=== PATIENT | female | born 1975 | race Caucasian/White ===

== ENCOUNTER 2022-05-09 08:25 | Day surgery (SDC) | payer BC ==
[2022-05-08 15:52] VITALS: BMI 24.9
[2022-05-09] MEDS ORDERED: DEXTROSE 50%-WATER 25 GM/50 ML DISP.SYRIN ONE ×3 (08:58→10:09)
[2022-05-09] MEDS ORDERED: DEXTROSE 50%-WATER 25 GM/50 ML DISP.SYRIN IVPUSH ONE ×3 (09:00→09:40)
[2022-05-09 09:08] VITALS: BP 123/63; PULSE 96; RESP 18; TEMP 98.1
[2022-05-09 10:52] LABS: ALBUMIN 3.8 g/dl (3.4-5.0); BILIRUBIN,TOTAL 0.9 mg/dl (0.2-1); CALCIUM 9.6 mg/dl (8.5-10); CREATININE 0.9 mg/dl (0.55-1.3); MAGNESIUM 1.7 mg/dL (1.8-2.4); TOT PROT 6.9 g/dl (6.4-8.2)
== END 2022-05-09 10:00 | disposition short-term general hospital (02) ==
LOC: FASU-ENDO 08:25
PROVIDERS: ATTEND Internal Medicine Gastroenterology
PROC: 0DJD8ZZ Inspection of Lower Intestinal Tract, Via Natural or Artificial Opening Endoscopic (ICD-10-PCS; principal; 2022-05-09)
DX: Z53.09 Procedure and treatment not carried out because of other contraindication (principal); Z12.11 Encounter for screening for malignant neoplasm of colon
CPT/HCPCS: 36415; 80053; 81025; 82947; 82962; 83735; 84100

== ENCOUNTER 2022-05-09 09:52 | Emergency (ER) | payer BC ==
[2022-05-09] MEDS ORDERED: ACETAMINOPHEN 1000 MG/100 ML BAG IVPB ONE (10:02)
[2022-05-09] MEDS ORDERED: SODIUM CHLORIDE 0.9% 500 ML INFUS.BAG IV ONE (10:02)
[2022-05-09 10:15] VITALS: BMI 24.8
[2022-05-09] MEDS ORDERED: ACETAMINOPHEN INJECTION 100 ML IVPB ONE (10:29)
[2022-05-09 10:45] LABS: HEMATOCRIT 37.5 % (32.4-45.2); HEMOGLOBIN 12.1 G/dL (10.7-15.3); MCHC 32.3 g/dl (32.0-36.0); MEAN CELL VOLUME 74.3 fl (80-96); MEAN PLT VOLUME 8.5 fl (7.5-11.1); PLATELET COUNT 219.4 10^3/uL (134-434); RBC 5.05 10^6/uL (3.60-5.2); RDW 21.8 % (11.6-15.6); WHITE BLOOD COUNT 8.5 10^3/uL (4.0-10.8)
[2022-05-09 11:03] LABS: PLATELET ESTIMATE ADEQUATE
[2022-05-09] MEDS ORDERED: MAGNESIUM SULF 50% (8.12 MEQ/2 ML-1 GM VIAL) IVPB ONE (11:09)
[2022-05-09] MEDS ORDERED: MAGNESIUM 1GM/D5W - 1 GM/100 ML IVPB IVPB ONE (11:15)
[2022-05-09 12:06] VITALS: BP 97/58; PULSE 104; RESP 16; TEMP 98.9
== END 2022-05-09 12:14 | disposition home or self-care (01) ==
LOC: FER 09:52
PROC: 3E033GC Introduction of Other Therapeutic Substance into Peripheral Vein, Percutaneous Approach (ICD-10-PCS; principal; 2022-05-09)
DX: U07.1 COVID-19 (principal); E11.649 Type 2 diabetes mellitus with hypoglycemia without coma; E83.42 Hypomagnesemia
CPT/HCPCS: 0241U-QW; 36415; 82962; 85027; 99284-25

== ENCOUNTER 2022-05-10 11:33 | Emergency (ER) | payer BC, OTHER ==
[2022-05-10 11:42] VITALS: TEMP 98.5; BMI 24.9
[2022-05-10] MEDS ORDERED: BEBTELOVIMAB (EUA) 175 MG/2 ML VIAL IVPUSH ONE (12:37)
[2022-05-10 15:14] VITALS: BP 102/66; PULSE 86; RESP 18
== END 2022-05-10 15:50 | disposition home or self-care (01) ==
LOC: JCOVINFU 11:33
DX: U07.1 COVID-19 (principal)
CPT/HCPCS: 99284-25; M0222; Q0222

== ENCOUNTER 2022-06-28 10:49 | Observation (INO) | payer BC ==
[2022-06-28 11:02] VITALS: BP 100/69; PULSE 68; RESP 17; TEMP 97.1; BMI 24.5
[2022-06-28 12:18] LABS: CHLORIDE 102 mmol/L (98-107); SODIUM 135 mmol/L (136-145)
[2022-06-28 12:20] LABS: BASO % 0.4 % (0-2.0); CALCIUM 8.9 mg/dL (8.5-10.1); EOS % 2.3 % (0-4.5); HEMATOCRIT 39.3 % (32.4-45.2); HEMOGLOBIN 12.2 GM/dL (10.7-15.3); LYMPH % 14.2 % (8-40); MCH 23.5 pg (25.7-33.7); MEAN CELL VOLUME 75.6 fl (80-96); MEAN PLT VOLUME 8.9 fl (7.5-11.1); NEUT % 74.1 % (42.8-82.8); PLATELET COUNT 282 10^3/uL (134-434); RDW 18.7 % (11.6-15.6); WHITE BLOOD COUNT 5.5 K/mm3 (4.0-10.0)
[2022-06-28 12:20] LABS: EPI CELLS 10 /uL (0-25.1); HYALINE CASTS 0 /uL (0-3.1); URINE APPEARANCE CLEAR; URINE BACTERIA 153 /uL (0-1359); URINE BILIRUBIN NEGATIVE (NEGATIVE); URINE COLOR YELLOW; URINE GLUCOSE (UA) TRACE (NEGATIVE); URINE KETONE NEGATIVE (NEGATIVE); URINE LEUK ESTERASE TRACE (NEGATIVE); URINE NITRITE NEGATIVE (NEGATIVE); URINE PROTEIN NEGATIVE (NEGATIVE); URINE RBC 82 /uL (0-23.9); URINE UROBILINOGEN 0.2 mg/dL (0.2-1.0); URINE WBC 22 /uL (0-25.8)
[2022-06-28 12:21] LABS: ALBUMIN 3.5 g/dl (3.4-5.0); CO2 32 mmol/L (21-32); GLUCOSE,RANDOM 94 mg/dL (74-106); MAGNESIUM 2.4 mg/dL (1.8-2.4)
[2022-06-28 12:24] LABS: PHOSPHOROUS 6.1 mg/dL (2.5-4.9); SGOT/AST 121 U/L (15-37)
[2022-06-28 12:25] LABS: BILIRUBIN,TOTAL 0.3 mg/dL (0.2-1); TOT PROT 7.9 g/dl (6.4-8.2)
[2022-06-28 12:28] LABS: ALK PHOS 77 U/L (45-117); ANION GAP 1 MMOL/L (8-16); SGPT/ALT 37 U/L (13-61)
[2022-06-28] MEDS ORDERED: DEXTROSE 50%-WATER 25 GM/50 ML DISP.SYRIN ONE (14:59)
[2022-06-28] MEDS ORDERED: DEXTROSE 50%-WATER - 25 GM/50 ML VIAL IVPUSH ONE (15:03)
[2022-06-28 15:45] LABS: INR 1.99 (0.83-1.09); PROTHROMBIN TIME (PATIENT) 23.1 SEC (9.7-13.0)
[2022-06-28 15:48] LABS: ACTIVATED PTT 42.8 SECONDS (25.2-36.5)
[2022-06-28 16:09] LABS: N-TERMINAL BNP 42.8 pg/ml (5-125)
[2022-06-28] MEDS ORDERED: ROSUVASTATIN CA 20 MG TABLET PO SCH (22:00)
[2022-06-28] MEDS ORDERED: HYDROXYCHLOROQUINE SO4 200 MG TABLET (FP) PO SCH (22:00)
[2022-06-29] MEDS ORDERED: ISOSORBIDE MONONITRATE 30 MG TAB.SR.24H (FP) PO SCH (10:00)
[2022-06-29] MEDS ORDERED: ASPIRIN 81 MG CHEWABLE TABLETS PO SCH (10:00)
[2022-06-29] MEDS ORDERED: ENOXAPARIN NA (PORCINE) 40 MG/0.4 ML DISP.SYRIN SQ SCH (10:00)
== END 2022-06-28 18:59 | disposition left against medical advice (07) ==
LOC: JER 10:49 → JERBED 15:19 → INTOOBSV 15:19
PROVIDERS: ADMIT Internal Medicine; ATTEND Internal Medicine
PROC: 3E033GC Introduction of Other Therapeutic Substance into Peripheral Vein, Percutaneous Approach (ICD-10-PCS; principal; 2022-06-28)
DX: R42 Dizziness and giddiness (principal); E78.5 Hyperlipidemia, unspecified; I25.10 Atherosclerotic heart disease of native coronary artery without angina pectoris; Z95.1 Presence of aortocoronary bypass graft; M32.9 Systemic lupus erythematosus, unspecified; Z91.018 Allergy to other foods; Z91.013 Allergy to seafood; J30.1 Allergic rhinitis due to pollen
CPT/HCPCS: 36415; 70450-TC; 71045-TC-FY; 80053; 81003; 82962; 83735; 83880; 84100; 84132; 84484; 84703; 85025; 85610; 85730; 87086; 93005; 93010; 96374; 99285-25; C9803-CS; G0378; U0003; U0005